=== PATIENT | male | born 1995 | race Asian ===

== ENCOUNTER 2018-01-28 01:11 | Emergency (ER) | payer MEDICAID ==
[~2018-01-28] VITALS: Ht 175.3 cm; Wt 90.4 kg
[2018-01-28 01:18] VITALS: Ht 175.3 cm; Wt 90.4 kg
[2018-01-28 02:11] LABS: BASOPHIL % 0.2 % (0-2); PLATELET COUNT 232 x10^3mcL (130-400); RED CELL DISTRIBUTION WIDTH 12.8 % (11.5-14.5)
[2018-01-28 02:21] LABS: CALCIUM 9.1 mg/dL (8.5-10.1); CARBON DIOXIDE 24.4 mmol/L (21-32); CHLORIDE SERUM 105 mmol/L (98-107); CREATININE SERUM 1.2 mg/dL (0.7-1.3); GFR1 > 60 mL/min; GLUCOSE SERUM 136 mg/dL (74-106); POTASSIUM SERUM 3.7 mmol/L (3.5-5.1); SODIUM SERUM 141 mmol/L (136-145)
[2018-01-28 02:34] LABS: ALBUMIN 4.9 g/dL (3.4-5.0); ALKALINE PHOSPHATASE 91 U/L (46-116); ALT/SGPT 42 U/L (16-63); AST/SGOT 17 U/L (15-37); BILIRUBIN TOTAL 0.95 mg/dL (0.20-1.00); FREE T4 1.44 ng/dL (0.76-1.46); LIPASE 149 IU/L (73-393)
[2018-01-28 02:36] LABS: TOTAL PROTEIN, SERUM 8.6 g/dL (6.4-8.2)
[2018-01-28 04:03] LABS: UA SPECIFIC GRAVITY >=1.030 (1.005-1.035); microscopic required? YES; urine erythrocyte TRACE (NEGATIVE)
[2018-01-28 04:16] LABS: AMPHETAMINE QUAL UR NONE DETECTED (See below)
[2018-01-28 05:24] VITALS: BP 109/55
== END 2018-01-28 06:14 | disposition home or self-care (01) ==
LOC: ED 01:11
PROVIDERS: Emergency Medicine
DX: E86.0 Dehydration (principal); R11.10 Vomiting, unspecified; R19.7 Diarrhea, unspecified; R10.33 Periumbilical pain
CPT/HCPCS: 84439; G0480; J1885; J2405; J7030